=== PATIENT | female | born 1930 | race Two or more races ===

== ENCOUNTER 2018-08-20 11:51 | Inpatient (IN) | payer MEDICARE, OTHER ==
[~2018-08-20] VITALS: Ht 165.1 cm; Wt 107.0 kg
[2018-08-20] VITALS (36 sets, daily range): BP systolic 77–107; BP diastolic 29–66
--- NOTE | 2018-08-20 11:53 | NUR ---
BIB RA 87 FROM [facility] DUE TO BEING MORE ALTERED THAN NORMAL PER STAFF. PT WITH TRACHEOSTOMY, RT AT BEDSIDE. TO ER BED 8, HOOKED TO [employer], PROVIDED W WARM BLANKET, FRANCO MULLEN AT BEDSIDE
[2018-08-20] MEDS ORDERED: IV NS 0.9% 1,000 ML BAG IV ONE (12:00)
[2018-08-20] MEDS ORDERED: CEFEPIME 1 GM in IV D5W 50 ML IV ONE (12:00)
[2018-08-20] MEDS ORDERED: VANCOMYCIN 1 GM in IV D5W 250 ML IV ONE (12:00)
--- NOTE | 2018-08-20 12:00 | NUR ---
VENTILATOR SETTINGS: AC: 15 VT: 500 O2: 40% PEEP: 5
--- NOTE | 2018-08-20 12:01 | NUR ---
RT NOTE RECEIVED PT BEING BAGGED BY PARAMEDICS. PT PLACED ON VENT PER MD ORDER. VENT SETTINGS FOUND ON ENDORSEMENT SHEET GIVEN BY PARAMEDICS FROM [facility], AC 15 500 40% +5. ALARMS SET PER PROTOCOL AND AUDIBLE. VENT PLUGGED IN TO RED OUTLET. AMBU BAG AT BED SIDE. NO DISTRESS NOTED AT MOMENT. PT HAS SHILEY 6 DCT CUFFED TRACH TUBE IN PLACE. CUFF INFLATED. TRACH TUBE MIDLINE AND SECURE. Addendum: 08/20/18 at 1204 by KAYKAY BURCIAGA RT Amended: Links added.
[2018-08-20] MEDS ORDERED: INSU100V7 SQ (12:19)
[2018-08-20] MEDS ORDERED: INSU100I4 SQ (12:19)
[2018-08-20] MEDS ORDERED: LORA-259 GT (12:19)
[2018-08-20 12:22] LABS: BASOPHILS % (AUTO) 0.2 % (0.0-2.0); HEMATOCRIT 27 % (33-45); HEMOGLOBIN 8.1 g/dL (11.5-14.8); LYMPHOCYTES # (AUTO) 0.5 /CMM (0.8-4.8); LYMPHOCYTES % (AUTO) 12.5 % (20.0-44.0); MEAN CORPUSCULAR HGB CONC 30 g/dl (31.0-36.0); MEAN CORPUSCULAR VOLUME 107 fL (82-100); MONOCYTES # (AUTO) 0.2 /CMM (0.1-1.30); MONOCYTES % (AUTO) 5.1 % (2.0-12.0); NEUTROPHILS % (AUTO) 82.2 % (43.0-81.0); PLATELET COUNT (AUTO) 292 /CMM (150-450); RED BLOOD CELL COUNT(AUTO) 2.54 MIL/uL (4.0-5.2); WHITE BLOOD COUNT (AUTO) 3.6 K/uL (4.3-11.0)
[2018-08-20] MEDS ORDERED: ATOR40TA GT (12:26)
[2018-08-20] MEDS ORDERED: NUT.237L31 GT (12:26)
[2018-08-20] MEDS ORDERED: LEVO137T24 PO (12:26)
[2018-08-20] MEDS ORDERED: PANT40TA2 PO (12:26)
[2018-08-20] MEDS ORDERED: CHOL200026 GT (12:27)
[2018-08-20] MEDS ORDERED: BISA10SU61 RC (12:39)
[2018-08-20] MEDS ORDERED: DOCU-141 GT (12:39)
[2018-08-20] MEDS ORDERED: FOLI1TAB16 GT (12:39)
[2018-08-20] MEDS ORDERED: NA P133E RC (12:39)
[2018-08-20] MEDS ORDERED: FENO54TA GT (12:39)
[2018-08-20] MEDS ORDERED: LINA5TAB GT (12:39)
[2018-08-20] MEDS ORDERED: ALLO100T GT (12:39)
[2018-08-20] MEDS ORDERED: MAGN400O6 GT (12:39)
[2018-08-20] MEDS ORDERED: FAMO-131 GT (12:39)
[2018-08-20] MEDS ORDERED: QUET25TA GT (12:39)
[2018-08-20] MEDS ORDERED: ACET160S GT ×2 (12:39→12:58)
[2018-08-20] MEDS ORDERED: SENN-168 GT (12:39)
[2018-08-20] MEDS ORDERED: ACID1TAB12 GT (12:39)
[2018-08-20 12:42] LABS: ALANINE AMINOTRANSFERASE 18 U/L (12-78); ALBUMIN 1.7 g/dL (3.4-5.0); ALKALINE PHOSPHATASE 108 U/L (46-116); ASPARTATE AMINOTRANSFERASE 35 U/L (15-37); BILIRUBIN,DIRECT 0.6 mg/dL (0.0-0.2); BILIRUBIN,TOTAL 0.9 mg/dL (0.2-1.0); CALCIUM, SERUM 8.9 mg/dL (8.5-10.1); CARBON DIOXIDE 31 mmol/L (21-32); CHLORIDE 102 mmol/L (98-107); CREATININE 2.2 mg/dL (0.6-1.3); GLUCOSE 135 mg/dL (74-106); POTASSIUM 5.9 mmol/L (3.5-5.1); SODIUM SERUM 144 mmol/L (136-145); TOTAL PROTEIN, SERUM 7.1 g/dL (6.4-8.2)
[2018-08-20 12:45] LABS: UREA NITROGEN, BLOOD 124 mg/dL (7-18)
[2018-08-20] MEDS ORDERED: NYST500P2 TP (12:58)
[2018-08-20] MEDS ORDERED: ASCO500C18 GT (12:58)
[2018-08-20] MEDS ORDERED: POVI1MED TP (12:58)
[2018-08-20] MEDS ORDERED: ZINC220T GT (12:58)
[2018-08-20] MEDS ORDERED: GEL100GE TP (12:58)
[2018-08-20] MEDS ORDERED: IPRA12.9 IH (12:58)
[2018-08-20] MEDS ORDERED: ALBU2.5V13 IH (12:58)
[2018-08-20] MEDS ORDERED: ZINC56.7 TP (12:58)
[2018-08-20] MEDS ORDERED: CHLO473M3 MM (12:58)
[2018-08-20] MEDS ORDERED: VITS42.53 TP (12:58)
[2018-08-20] MEDS ORDERED: IPRA0.2S9 IH ×2 (12:58)
[2018-08-20] MEDS ORDERED: MULT-213 PO (12:58)
[2018-08-20] MEDS ORDERED: PROT946L GT (12:58)
[2018-08-20] MEDS ORDERED: MULT-213 GT (12:58)
--- NOTE | 2018-08-20 13:00 | NUR ---
URINE SPECIMEN COLLECTED VIA IN AND OUT CATHETER. SENT TO LAB
[2018-08-20] MEDS ORDERED: ALBU2.5V38 IH (13:01)
[2018-08-20 13:15] LABS: APPEARANCE,URINE Turbid (CLEAR); BILIRUBIN,URINE Negative (NEGATIVE); BLOOD, URINE Moderate Ery/uL (NEGATIVE); COLOR,URINE Yellow (YELLOW); KETONES,URINE Trace (NEGATIVE); LEUKOCYTE ESTERASE ,URINE Large (NEGATIVE); NITRITE, URINE Negative (NEGATIVE); PROTEIN,URINE 30 mg/dl (NEGATIVE); UGLUCOSE Negative (NEGATIVE); UROBILINOGEN,URINE 0.2 EU/dL (0.2)
[2018-08-20 13:20] LABS: BACTERIA,URINE Many /HPF (None Seen); SQUAMOUS EPITHELIAL CELL,UR Few /HPF (None Seen); WBC,URINE 80-100 /HPF (0-3)
--- NOTE | 2018-08-20 13:45 | NUR ---
WHEELED OUT VIA [facility] FOR CT SCAN, RN AND RT AT BEDSIDE
--- NOTE | 2018-08-20 14:05 | NUR ---
PICC LINE NURSE AT BEDSIDE
--- NOTE | 2018-08-20 14:14 | NUR ---
CALLED [facility] [phone] SINDI WILLS
--- NOTE | 2018-08-20 14:33 | NUR ---
CALLED [facility] [phone] DR. WILLS PAGED AGAIN
--- NOTE | 2018-08-20 14:43 | NUR ---
REPORT GIVEN TO NATHALIE CERVANTES OF ICU
--- NOTE | 2018-08-20 15:14 | NUR ---
LOOM STARTER AT BEDSIDE FOR CONFIRMATION OF CENTRAL LINE
--- NOTE | 2018-08-20 15:53 | NUR ---
3RD CALL FOR DR. WILLS RE: PT ADMISSION.
--- NOTE | 2018-08-20 16:40 | NUR ---
PER DR WILLIS, CENTRAL LINE IS IN PLACE AND IS OK TO USE.
--- NOTE | 2018-08-20 16:45 | NUR ---
VANCOMYCIN 1GM IN IV D5W 250ML IVPB CENTRAL LINE R IJ END TIME: 1745
--- NOTE | 2018-08-20 17:00 | NUR ---
DR. HERNANDEZ MADE AWARE OF PATIENT ICU ADMISSION. CODE STATUS ORDERED PER POLST-DNR. TO ADMIT PATIENT.
--- NOTE | 2018-08-20 17:00 | NUR ---
RN INITIAL NOTES RECEIVED PT FROM ER VIA CALVIN. PT OPENS EYES, WITHDRAWS TO PAIN. PT ON VENT, TRACH IN PLACE. TOLERATING VENT WELL. NO RESPIRATORY DISTRESS NOTED. NO SOB NOTED. NO SIGNS OF PAIN NOTED. RIGHT IJ IN PLACE, NS BOLUS INFUSING. FC INSERTED. CLOUDY YELLOW URINE NOTED. BODY ASSESSMENT DONE. PICTURES TAKEN AND PLACED IN THE CHART. CALLED DR HERNANDEZ FOR ADMISSION ORDERS. AWAITING FOR CALL BACK. PT HOB ELEVATED. BLE ELEVATED. SON AT BEDSIDE. WILL CONTINUE TO MONITOR
--- NOTE | 2018-08-20 18:58 | NUR ---
RN CLOSING NOTES PT REMAINS ON VENT. TRACH IN PLACE. NO RESPIRATORY DISTRESS NOTED. NO SOB NOTED. NO SIGNS OF PAIN NOTED. KEPT CLEAN AND DRY. REPOSITIONED. WILL ENDORSE FOR CONTINUITY OF CARE.
[2018-08-20] MEDS ORDERED: DEXTROSE 50%-WATER 50 ML DISP.SYRIN IV PRN (19:00)
[2018-08-20] MEDS ORDERED: ONDANSETRON HCL/PF 4 MG/2 ML VIAL IVP PRN (19:00)
[2018-08-20] MEDS ORDERED: SODIUM POLYSTYRENE SULFONATE 15 G/60 ML BOTTLE PO ONE (19:00)
[2018-08-20] MEDS ORDERED: HYDROCODONE/APAP 5/325MG 1 EACH TABLET PO PRN (19:00)
[2018-08-20] MEDS ORDERED: NA PHOS,M-B/NA PHOS,DI-BA 1 EA ENEMA RC PRN (19:00)
[2018-08-20] MEDS ORDERED: MAGNESIUM HYDROXIDE 30 ML UDC GT PRN (19:00)
[2018-08-20] MEDS ORDERED: GLUCERNA 1.2 1,000 ML BOTTLE GT SCH (19:00)
[2018-08-20] MEDS ORDERED: LORAZEPAM 1 MG TABLET GT PRN (19:00)
[2018-08-20] MEDS ORDERED: BISACODYL SUPP (10 MG) 10 MG/SUPP.RECT SUPP.RECT RC PRN (19:00)
[2018-08-20] MEDS ORDERED: MAGNESIUM HYDROXIDE 30 ML UDC PO PRN (19:00)
[2018-08-20] MEDS ORDERED: INSULIN REGULAR, HUMAN 100 UNIT/ML 3 ML VIAL SQ PRN (19:00)
[2018-08-20] MEDS ORDERED: MAG HYDROX/AL HYDROX/SIMETH 30 ML UDC PO PRN (19:00)
[2018-08-20] MEDS ORDERED: ZOLPIDEM TARTRATE 5 MG TABLET PO PRN (19:00)
[2018-08-20] MEDS ORDERED: Z GUARD REMEDY 2 OZ OINT TP PRN (19:00)
--- NOTE | 2018-08-20 19:00 | NUR ---
STEWARD/STEWARDESS DECK NOTES RECEIVED PT ON BED. A/O X 1. STIMULATED BY PAIN. [facility] SATURATING WELL. NO RESPIRATORY DISTRESS NOTED. ON TELE MONITOR ST 111. ON F/C DRAINING YELLOW URINE. IV ACCESS RIJ TLC, PATENT AND INTACT. GTUBE CLAMPED. HEAD OF BED ELEVATED. SIDE RAILS UP. CALL LIGHT WITHIN REACH. BED ALARM ON. WILL CONTINUE TO MONITOR PT CLOSELY.
--- NOTE | 2018-08-20 19:06 | NUR ---
RN NOTES CALLED DR HERNANDEZ FOR LOW BP 80S. PAGED. AWAITING FOR CALL BACK
[2018-08-20] MEDS ORDERED: FEE PK DOSING 1 MIN EA MC ONE (19:12)
[2018-08-20] MEDS ORDERED: PHENYLEPHRINE 80 MG in IV D5W 250 ML IV PRN (19:30)
--- NOTE | 2018-08-20 19:54 | NUR ---
WESTERN PHILOSOPHY PROFESSOR NOTES PT BLOOD PRESSURE 83/44MMHG. CALLED PHARMACY FOR JESSICA ORDER.
[2018-08-20] MEDS: PHENYLEPHRINE 80 MG in IV D5W 250 ML IV PRN (19:59)
--- NOTE | 2018-08-20 20:00 | NUR ---
RCVD PT WITH TRACH SHILEY 6 DCT ON VENT WITH NOTED SETTINGS. PT IS AWAKE , NON VERBAL AND RESPONDS TO STIMULI WHEN SUCTION. SUCTIONED MODERATE AMOUNT OF YELLOW THICK SECRETIONS. VENT PLUGGED INTO RED OUTLET. TRACH PATENT AND SECURED. ALARMS ON AND AUDIBLE. AMBU BAG AT BEDSIDE. NO RESPIRATORY DISTRESS NOTED AT THIS TIME. WILL CONTINUE TO MONITOR THE PT. Addendum: 08/21/18 at 0520 by PEE CUNNINGHAM RT PT IS OBTUNDED
[2018-08-20] MEDS: Sodium Acetate 100 MEQ in IV D5W 1,000 ML IV PRN (20:08)
[2018-08-20 20:13] LABS: CALCIUM, SERUM 8.3 mg/dL (8.5-10.1); CARBON DIOXIDE 29 mmol/L (21-32); CHLORIDE 103 mmol/L (98-107); CREATININE 2.2 mg/dL (0.6-1.3); GLUCOSE 118 mg/dL (74-106); POTASSIUM 5.3 mmol/L (3.5-5.1); SODIUM SERUM 144 mmol/L (136-145)
[2018-08-20 20:23] LABS: UREA NITROGEN, BLOOD 120 mg/dL (7-18)
[2018-08-20] MEDS ORDERED: DIGOXIN INJ 0.5 MG/2 ML AMPUL IV ONE (21:00)
[2018-08-20] MEDS: INSULIN GLARGINE, 100 UNIT/ML CARTRIDGE SQ SCH (21:00)
--- NOTE | 2018-08-20 21:00 | NUR ---
PASTRY ASSISTANT NOTES CALLED [employer] FOR AFIB UNCONTROLLED. ORDERED DIGOXIN .125MG IV ONCE.
[2018-08-20] MEDS: DOCUSATE SODIUM LIQ 100 MG/10 ML UDC GT SCH (21:39)
[2018-08-20] MEDS ORDERED: BLOOD SUGAR DIAGNOSTIC 1 EACH STRIP IN SCH (22:00)
[2018-08-20] MEDS ORDERED: ATORVASTATIN 40 MG TABLET GT SCH (22:00)
[2018-08-20] MEDS ORDERED: SENNOSIDES 8.6 MG TABLET GT SCH (22:00)
[2018-08-20] MEDS ORDERED: AMIODARONE 150 MG/3 ML VIAL IV ONE (22:06)
--- NOTE | 2018-08-20 22:15 | NUR ---
Patient is trach/vent dependent resides at [facility] [phone]. She is bedbound, totally dependent with adl's. Currently on 7days bedhold. Will dc back to SNF[facility] once discharge. Addendum: 08/20/18 at 2216 by ALIDA FOLEY RN Amended: Links added.
--- NOTE | 2018-08-20 22:18 | NUR ---
FAMILY MEDICINE CHAIR NOTES MD AT BEDSIDE. ORDERED AMIODARONE BOLUS AND DRIP PER PROTOCOL. HR AFIB 108.
[2018-08-20] MEDS ORDERED: AMIODARONE 150 MG in IV D5W 100 ML IV ONE (22:30)
[2018-08-20] MEDS ORDERED: AMIODARONE 900 MG in IV D5W 482 ML IV PRN (22:30)
[2018-08-21] VITALS (77 sets, daily range): BP systolic 80–129; BP diastolic 23–62
[2018-08-21] MEDS ORDERED: IPRATROPIUM NEB FS 0.5 MG/2.5 ML AMPUL.NEB IH SCH
[2018-08-21] MEDS ORDERED: ALBUTEROL FS 2.5 MG/0.5 ML VIAL.NEB IH SCH
[2018-08-21] MEDS: BLOOD SUGAR DIAGNOSTIC 1 EACH STRIP IN SCH ×4 (00:50→17:02)
[2018-08-21] MEDS: PHENYLEPHRINE 80 MG in IV D5W 250 ML IV PRN ×4 (03:31→18:46)
--- NOTE | 2018-08-21 04:50 | NUR ---
CONTACT CLERK NOTES BLADDER SCANNER UNAVAILABLE. CN INFORMED.
[2018-08-21 04:53] LABS: BASOPHILS % (AUTO) 0.1 % (0.0-2.0); EOSINOPHILS % (AUTO) 0.1 % (0.0-6.0); HEMATOCRIT 25 % (33-45); HEMOGLOBIN 7.5 g/dL (11.5-14.8); LYMPHOCYTES # (AUTO) 0.6 /CMM (0.8-4.8); LYMPHOCYTES % (AUTO) 6.7 % (20.0-44.0); MEAN CORPUSCULAR HGB CONC 30 g/dl (31.0-36.0); MEAN CORPUSCULAR VOLUME 106 fL (82-100); MONOCYTES # (AUTO) 0.4 /CMM (0.1-1.30); MONOCYTES % (AUTO) 4.3 % (2.0-12.0); NEUTROPHILS # (AUTO) 7.7 /CMM (1.8-8.9); NEUTROPHILS % (AUTO) 88.8 % (43.0-81.0); PLATELET COUNT (AUTO) 373 /CMM (150-450); RED BLOOD CELL COUNT(AUTO) 2.34 MIL/uL (4.0-5.2)
[2018-08-21 05:33] LABS: CALCIUM, SERUM 8.4 mg/dL (8.5-10.1); CARBON DIOXIDE 20 mmol/L (21-32); CHLORIDE 98 mmol/L (98-107); CREATININE 2.4 mg/dL (0.6-1.3); GLUCOSE 152 mg/dL (74-106); MAGNESIUM 2.9 mg/dL (1.8-2.4); PHOSPHORUS 5.3 mg/dL (2.5-4.9); POTASSIUM 5.7 mmol/L (3.5-5.1); SODIUM SERUM 140 mmol/L (136-145)
[2018-08-21 05:36] LABS: IRON, SERUM 18 ug/dl (50-175); TOTAL IRON BINDING CAPACITY 144 ug/dl (250-450)
[2018-08-21 05:41] LABS: CHOLESTEROL 34 mg/dL (<200); FERRITIN 841 ng/mL (8-388); HDL CHOLESTEROL 13 mg/dL (40-60); LDL 12 mg/dL (0-99); TRIGLYCERIDES 111 mg/dL (30-150)
[2018-08-21 05:45] LABS: UREA NITROGEN, BLOOD 119 mg/dL (7-18)
[2018-08-21 06:23] LABS: BAND % (MANUAL) 37 % (0.0-5.0); LYMPHOCYTES % (MANUAL) 7 % (16-48); METAMYELOCYTES % 1 % (0-0); MONOCYTES % (MANUAL) 4 % (0-11.0); MYELOCYTES % 3 % (0-0); NEUTROPHILS % (MANUAL) 47 (42-76); REACTIVE LYMPHOCYTES 1 % (0-0)
[2018-08-21 06:25] LABS: WHITE BLOOD COUNT (AUTO) 8.6 K/uL (4.3-11.0)
--- NOTE | 2018-08-21 07:03 | NUR ---
ROLLING MILL OPERATOR HELPER NOTES NO ACUTE CHANGES NOTED DURING THE SHIFT. PROVIDED COMFORT AND SAFETY. WILL ENDORSE TO THE AM NURSE FOR CONTINUITY OF CARE.
[2018-08-21] MEDS: Sodium Acetate 100 MEQ in IV D5W 1,000 ML IV PRN ×2 (07:24→17:59)
[2018-08-21] MEDS ORDERED: LEVOTHYROXINE SODIUM 100 MCG TABLET GT SCH (07:30)
[2018-08-21 07:34] LABS: URINE TOTAL PROTEIN 178.4 mg/dL (0-11.9)
[2018-08-21 07:45] LABS: APPEARANCE,URINE TURBID (CLEAR); BILIRUBIN,URINE 1+ (NEGATIVE); BLOOD, URINE 3+ Ery/uL (NEGATIVE); COLOR,URINE YELLOW (YELLOW); KETONES,URINE TRACE (NEGATIVE); PROTEIN,URINE 2+ mg/dl (NEGATIVE); UGLUCOSE NEGATIVE (NEGATIVE); UROBILINOGEN,URINE 0.2 EU/dL (0.2)
[2018-08-21 07:46] LABS: LEUKOCYTE ESTERASE ,URINE 2+ (NEGATIVE); NITRITE, URINE NEGATIVE (NEGATIVE)
[2018-08-21 07:55] LABS: SQUAMOUS EPITHELIAL CELL,UR Moderate /HPF (None Seen)
[2018-08-21 07:56] LABS: BACTERIA,URINE Many /HPF (None Seen); URINE AMORPHOUS URATE Few /HPF (None Seen)
[2018-08-21 07:57] LABS: WBC,URINE 21-50 /HPF (0-3); YEAST,URINE Few /HPF (None Seen)
[2018-08-21] MEDS: ALBUTEROL FS 2.5 MG/0.5 ML VIAL.NEB IH SCH ×2 (08:01→12:33)
[2018-08-21] MEDS: IPRATROPIUM NEB FS 0.5 MG/2.5 ML AMPUL.NEB IH SCH ×2 (08:01→12:33)
[2018-08-21] MEDS: ACETAMINOPHEN 325 MG TABLET PO PRN ×3 (08:19→17:51)
[2018-08-21] MEDS: DOCUSATE SODIUM LIQ 100 MG/10 ML UDC GT SCH ×2 (08:19→17:00)
[2018-08-21] MEDS: PANTOPRAZOLE 40 MG/PACK PACK GT SCH ×2 (08:19→17:00)
[2018-08-21] MEDS: CHLORHEXIDINE GLUCONATE 15 ML UDC MM SCH ×2 (08:19→17:00)
[2018-08-21] MEDS: INSULIN GLARGINE, 100 UNIT/ML CARTRIDGE SQ SCH (08:20)
[2018-08-21] MEDS ORDERED: HYDROGEL DRESSING 90 GM TUBE TP SCH (09:00)
[2018-08-21] MEDS ORDERED: MULTIVIT W/MINERALS 1 TAB TABLET GT SCH (09:00)
[2018-08-21] MEDS ORDERED: FAMOTIDINE (20 MG) 20 MG TABLET GT SCH (09:00)
[2018-08-21] MEDS ORDERED: Fenofibrate 48 MG TABLET GT SCH (09:00)
[2018-08-21] MEDS ORDERED: ALLOPURINOL 100 MG TABLET GT SCH (09:00)
[2018-08-21] MEDS ORDERED: POVIDONE-IODINE OINT 28.4 GM TUBE TP SCH (09:00)
[2018-08-21] MEDS ORDERED: VITAMINS A AND D 56.7 GM TUBE TP SCH (09:00)
[2018-08-21] MEDS ORDERED: ZINC SULFATE 220 MG CAPSULE GT SCH (09:00)
[2018-08-21] MEDS ORDERED: QUETIAPINE FUMARATE 25 MG TABLET GT SCH (09:00)
[2018-08-21] MEDS ORDERED: FOLIC ACID 1 MG TABLET GT SCH (09:00)
[2018-08-21] MEDS ORDERED: ACIDOPHILUS/BULGARICUS 1 EACH TAB.CHEW GT SCH (09:00)
[2018-08-21] MEDS ORDERED: LINAGLIPTIN 5 MG TABLET GT SCH (09:00)
[2018-08-21] MEDS ORDERED: ZINC OXIDE 30 GM TUBE TP SCH (09:00)
[2018-08-21 09:02] LABS: EOSINOPHIL,URINE None Seen
--- NOTE | 2018-08-21 09:50 | NUR ---
RN NOTE 0715: Received patient with trache to vent. Noted patient with increased work of breathing as evidenced by using accessory muscles. Sat 93% on 40% FIO2. GT intact, feeding on hold for patient's HOB unable to elevate at this time. With Kenney cath intact, noted with very minimal UOP, MD aware. Afib 90-100's on the monitor. With RIJ TLC intact. On Amio 0.5 ongoing. Daniel @ 200mcg, will titrate as ordered. Daughter at bedside, aware for the POC. Patient is with anasarca, BUE has bruise/discoloration and with weeping noted. 0815: S/E by Dr. Panchal, with order to DC Amio drip, carried out. 0900: Informed Dr. Panchal re: the Dig level of 0.62, still Afib 90's. bench lay out technician, prelim Echo result in with EF 55%, awaiitng final reading from cardio. 0940: Informed Dr. Lutz that daughter wants to talk to him re: other options of code status, awaiting for MD.
--- NOTE | 2018-08-21 10:18 | NUR ---
RT PATIENT REC'D TRACHED ON [facility] VENT IN CRITICAL CONDITION. DAUGHTER AT BEDSIDE. VENT ALARMS CHECKED + AUDIBLE. SANJANAU BAG AT HOB. Addendum: 08/21/18 at 1029 by LIAM CAMPBELL RT Amended: Links added.
[2018-08-21] MEDS ORDERED: NOREPINEPHRINE 16 MG in IV D5W 500 ML IV PRN (11:00)
--- NOTE | 2018-08-21 13:23 | NUR ---
RN NOTE 1120: Dr. Lutz spoke with Trevor, daughter via phone and discussed re: the POC. With order to change care to comfort measures only. Will start patient on comfort measures when son comes or time preferred by family, DC all meds labs and feeding and start on Morphine drip. 1200: Started patient on Levo for SBP 80's on max dose of Daniel. Son, Lex here, aware for the POC and decided to do the procedure or making patient comfort measures only, by 7pm. 1300: S/E by Dr. Flowers, with order to DC vent once Morphine starts and may place on minimal O2 supplement for comfort.
[2018-08-21] MEDS ORDERED: CEFEPIME 1 GM in IV D5W 50 ML IV SCH (14:00)
--- NOTE | 2018-08-21 17:02 | NUR ---
RN NOTE Per family at bedside, no need to give due meds at this time.
--- NOTE | 2018-08-21 19:38 | NUR ---
MORPHINE DRIP STARTED ORDERED
--- NOTE | 2018-08-21 20:10 | NUR ---
CODE STATUS CHANGED TO COMFORT MEASURES ONLY PER MD ORDER, FAMILY AT BEDSIDE
--- NOTE | 2018-08-21 20:15 | NUR ---
RECEIVED PT ON VENT, TRACHED. PT PLACED ON COOL AEROSOL FOR COMFORT MEASURE PER MD ORDER. RN MARITZA AT BEDSIDE AND ED FINISHER MAP AND CHART. FAMILY AT BEDSIDE.
--- NOTE | 2018-08-21 20:17 | NUR ---
RN PT , PRONOUNCED BY CHARGE NURSE ED, FAMILY AT BEDSIDE
--- NOTE | 2018-08-21 20:20 | NUR ---
RN ADMITTING AND NURSING TECHNOLOGY SERVICES MANAGER MADE AWARE AND NOTIFIED.
--- NOTE | 2018-08-21 21:20 | NUR ---
rn called [facility] [id number] , spoke to Laisha, reference # [id number]
--- NOTE | 2018-08-21 21:20 | NUR ---
RN POST MORTEM CARE DONE .
--- NOTE | 2018-08-21 21:30 | NUR ---
BILLY BREWER MADE AWARE AND NOTIFIED
--- NOTE | 2018-08-21 22:00 | NUR ---
RN PT'S BODY TRANSFERRED TO [facility] BY SECURITY AND BILLY CRAIG.
[2018-08-22] MEDS ORDERED: VANCOMYCIN 1 GM in IV D5W 250 ML IV SCH (05:00)
== END 2018-08-21 20:17 | disposition expired | DRG 871 ==
LOC: ER 11:55 → ICU 13:52
PROVIDERS: ADMIT Internal Medicine; ATTEND Internal Medicine
PROC: 5A1945Z Respiratory Ventilation, 24-96 Consecutive Hours (ICD-10-PCS; principal; 2018-08-20)
DX: A41.9 Sepsis, unspecified organism (principal); R65.21 Severe sepsis with septic shock; J18.9 Pneumonia, unspecified organism; I21.A1 Myocardial infarction type 2; E43 Unspecified severe protein-calorie malnutrition; Z99.11 Dependence on respirator [ventilator] status; I13.0 Hypertensive heart and chronic kidney disease with heart failure and stage 1 through stage 4 chronic kidney disease, or unspecified chronic kidney disease; G93.40 Encephalopathy, unspecified; E87.2 Acidosis; I47.2 Ventricular tachycardia; N39.0 Urinary tract infection, site not specified; J98.11 Atelectasis; N17.9 Acute kidney failure, unspecified; J96.10 Chronic respiratory failure, unspecified whether with hypoxia or hypercapnia; Z66 Do not resuscitate; Z51.5 Encounter for palliative care; Z93.0 Tracheostomy status; Z93.1 Gastrostomy status; R13.10 Dysphagia, unspecified; Z79.51 Long term (current) use of inhaled steroids; Z79.4 Long term (current) use of insulin; Z79.899 Other long term (current) drug therapy; I50.9 Heart failure, unspecified; N18.9 Chronic kidney disease, unspecified; K21.9 Gastro-esophageal reflux disease without esophagitis; E78.5 Hyperlipidemia, unspecified; E87.5 Hyperkalemia; I25.10 Atherosclerotic heart disease of native coronary artery without angina pectoris; D50.9 Iron deficiency anemia, unspecified; E03.9 Hypothyroidism, unspecified; E11.22 Type 2 diabetes mellitus with diabetic chronic kidney disease; E11.51 Type 2 diabetes mellitus with diabetic peripheral angiopathy without gangrene; Z87.891 Personal history of nicotine dependence; I48.91 Unspecified atrial fibrillation; Z95.1 Presence of aortocoronary bypass graft
CPT/HCPCS: 31720; 36415; 36600; 70450-TC; 71045-TC; 76770-TC; 80048-TC; 80061-TC; 80076-TC; 80162-TC; 81000-TC; 82570-TC; 82728-TC; 82803-TC; 82962-TC; 83540-TC; 83605-TC; 83735-TC; 84100-TC; 84155-TC; 84300-TC; 84484-TC; 85025-TC; 85730-TC; 87040-TC; 87081-TC; 87086-TC; 87186-TC; 93307-TC; 94002-TC; 94003-TC; 99082-TC; A4216; A6248; A6402; C1751; G0378; J0282; J0692; J1160; J1815; J2274; J2370; J3370; J3490; J7030; J7050; J7060; J7070